=== PATIENT | female | born 1970 | race Caucasian/White ===

== ENCOUNTER 2016-12-04 08:37 | Inpatient (IN) | payer OTHER ==
[~2016-12-04] VITALS: Ht 160 cm; Wt 80.9 kg
[~2016-12-04 08:37] MED LIST: IRON325 MG PO
[2016-12-04 13:09] VITALS: BP 135/67
[2016-12-04 18:52] VITALS: BP 132/65
[2016-12-04 20:44] LABS: HEMATOCRIT 31.8 % (36.0-46.0); MCH 26.5 PG (29.0-34.0); MCHC 31.4 G/DL (30.0-36.0); MCV 84.4 FL (83-99); MEAN PLAT.VOLUME 10.7 uM^3 (9.5-12.4); PLATELET COUNT 361 K/uL (156-360); RBC DIS.WIDTH-CV 16.8 % (11.8-14.6); RED BLOOD COUNT 3.77 M/uL (3.80-5.20); WHITE BLOOD COUNT 14.9 K/uL (4.1-10.2)
[2016-12-04 21:16] LABS: ANION GAP 7 MEQ/L (2-14); CHLORIDE 105 MEQ/L (99-109); GFR ESTIMATE (CALCULATED) > 59 mL/min/; GLUCOSE 171 mg/dL (70-99); POTASSIUM 3.9 MEQ/L (3.7-5.4); SAMPLE HEMOLYSIS CHECK 0; SAMPLE ICTERIC CHECK 0; SAMPLE LIPEMIA CHECK 0; SODIUM 135 MEQ/L (136-147); UREA NITROGEN (BUN) 11 mg/dL (9-23)
[2016-12-04 23:31] VITALS: BP 137/66
[2016-12-05 03:37] VITALS: BP 110/57
[2016-12-05 06:37] LABS: HEMATOCRIT 30.5 % (36.0-46.0); MCH 26.2 PG (29.0-34.0); MCHC 31.1 G/DL (30.0-36.0); MCV 84.3 FL (83-99); PLATELET COUNT 361 K/uL (156-360); RBC DIS.WIDTH-CV 16.9 % (11.8-14.6); RBC DIS.WIDTH-SD 51.9 % (39-53); RED BLOOD COUNT 3.62 M/uL (3.80-5.20); WHITE BLOOD COUNT 11.4 K/uL (4.1-10.2)
[2016-12-05 06:47] VITALS: BP 104/54
[2016-12-05 07:03] LABS: ANION GAP 7 MEQ/L (2-14); CHLORIDE 104 MEQ/L (99-109); GFR ESTIMATE (CALCULATED) > 59 mL/min/; GLUCOSE 122 mg/dL (70-99); POTASSIUM 4.2 MEQ/L (3.7-5.4); SAMPLE HEMOLYSIS CHECK 0; SAMPLE ICTERIC CHECK 0; SAMPLE LIPEMIA CHECK 0; SODIUM 136 MEQ/L (136-147); UREA NITROGEN (BUN) 6 mg/dL (9-23)
[2016-12-05 11:24] VITALS: BP 106/60
[2016-12-05 16:05] VITALS: BP 125/60
[2016-12-05 19:35] VITALS: BP 118/56
[2016-12-05 23:43] VITALS: BP 123/56
[2016-12-06 03:52] VITALS: BP 129/58
[2016-12-06 07:08] LABS: ANION GAP 8 MEQ/L (2-14); CHLORIDE 104 MEQ/L (99-109); GFR ESTIMATE (CALCULATED) > 59 mL/min/; GLUCOSE 105 mg/dL (70-99); POTASSIUM 3.8 MEQ/L (3.7-5.4); SAMPLE HEMOLYSIS CHECK 0; SAMPLE ICTERIC CHECK 0; SAMPLE LIPEMIA CHECK 0; SODIUM 136 MEQ/L (136-147); UREA NITROGEN (BUN) 8 mg/dL (9-23)
[2016-12-06 07:14] LABS: HEMATOCRIT 29.5 % (36.0-46.0); MCH 26.3 PG (29.0-34.0); MCHC 31.2 G/DL (30.0-36.0); MCV 84.3 FL (83-99); MEAN PLAT.VOLUME 10.4 uM^3 (9.5-12.4); PLATELET COUNT 335 K/uL (156-360); RBC DIS.WIDTH-SD 52.2 % (39-53)
[2016-12-06 07:15] LABS: WHITE BLOOD COUNT 7.6 K/uL (4.1-10.2)
[2016-12-06 07:30] VITALS: BP 116/58
[2016-12-06] MEDS ORDERED: TRAMADOL HCL50 MG PO (09:20)
== END 2016-12-06 10:36 | disposition home or self-care (01) | DRG 741 ==
LOC: 2SOUTH 08:37 → 2EAST 18:37
PROVIDERS: Obstetrics & Gynecology Gynecologic Oncology
DX: C53.9 Malignant neoplasm of cervix uteri, unspecified (principal); D25.9 Leiomyoma of uterus, unspecified; N87.9 Dysplasia of cervix uteri, unspecified
CPT/HCPCS: 36415; 80048; 85027; 86850; 86900; 86901; 86920; 88305; 88309; J0131; J0690; J1100; J1170; J1650; J1885; J2250; J2270; J2405; J2710; J2765; J3010; P9045